=== PATIENT | female | born 1970 | race Caucasian/White ===

== ENCOUNTER 2018-08-20 16:41 | Emergency (ER) | payer SELFPAY ==
[~2018-08-20] VITALS: Ht 160 cm; Wt 69.9 kg
[2018-08-20 16:58] VITALS: Ht 160 cm; Wt 69.9 kg
[2018-08-20 18:11] VITALS: BP 134/78
== END 2018-08-20 18:11 | disposition home or self-care (01) ==
LOC: ED 16:41
DX: S16.1XXA Strain of muscle, fascia and tendon at neck level, initial encounter (principal); M54.5 Low back pain; M25.551 Pain in right hip; R51 Headache; V43.52XA Car driver injured in collision with other type car in traffic accident, initial encounter; Y93.I9 Activity, other involving external motion; Y92.488 Other paved roadways as the place of occurrence of the external cause; Y99.8 Other external cause status
CPT/HCPCS: J1885